=== PATIENT | female | born 1955 | race Caucasian/White ===

== ENCOUNTER 2017-04-26 17:25 | Inpatient (IN) | payer OTHER, MEDICAID ==
[~2017-04-26] VITALS: Ht 160 cm; Wt 77.1 kg
[2017-04-26 18:52] LABS: microscopic required? YES; urine erythrocyte 2+ (NEGATIVE)
[2017-04-26] MEDS ORDERED: BLOOD PRESSURE1 EA10 (22:44)
[2017-04-26 23:06] LABS: PLATELET COUNT 35 x10^3mcL (130-400); RED CELL DISTRIBUTION WIDTH 15.7 % (11.5-14.5)
[2017-04-26 23:11] LABS: CALCIUM 8.8 mg/dL (8.5-10.1); CARBON DIOXIDE 24.4 mmol/L (21-32); CHLORIDE SERUM 109 mmol/L (98-107); CREATININE SERUM 0.5 mg/dL (0.6-1.0); GFR1 > 60 mL/min; GLUCOSE SERUM 106 mg/dL (74-106); POTASSIUM SERUM 4.2 mmol/L (3.5-5.1); SODIUM SERUM 145 mmol/L (136-145)
[2017-04-26 23:15] LABS: ALBUMIN 3.4 g/dL (3.4-5.0); ALKALINE PHOSPHATASE 84 U/L (46-116); ALT/SGPT 18 U/L (14-59); AST/SGOT 25 U/L (15-37); BILIRUBIN TOTAL 2.31 mg/dL (0.20-1.00); TOTAL PROTEIN, SERUM 6.5 g/dL (6.4-8.2)
[2017-04-26] MEDS ORDERED: METFORMIN HCL1000 MG PO (23:23)
[2017-04-26] MEDS ORDERED: ATENOLOL25 MG PO (23:24)
[2017-04-26] MEDS ORDERED: JANUVIA100 M1 PO (23:24)
[2017-04-26] MEDS ORDERED: GLYBURIDE2.5 MG PO (23:24)
[2017-04-26] MEDS ORDERED: SPIRONOLACTONE50 MG PO (23:25)
[2017-04-26] MEDS ORDERED: LEVOTHYROXINE0.05 M2 PO (23:25)
[2017-04-26] MEDS ORDERED: NATURE'S BLEND F1 MG PO (23:25)
[2017-04-26] MEDS ORDERED: HYDROXYZINE HYD25 MG PO (23:26)
[2017-04-26] MEDS ORDERED: FERROUS SULFAT325 M2 PO (23:26)
[2017-04-26] MEDS ORDERED: PROMACTA75 MG PO (23:27)
[2017-04-26] MEDS ORDERED: PROBIOTIC 5 BI1 EACH (23:27)
[2017-04-26 23:32] LABS: BAND NEUTROPHIL 2 % (0-10); MONOCYTE 7 % (0-7); SEGMENTED NEUTROPHILS 77 % (37-75)
[2017-04-26 23:34] LABS: ovalocyte/elliptocyte 1+; rbc morphology (normal/abnorm) ABNORMAL (NORMAL); tear drop cell (dacryocyte) 1+
[2017-04-27] VITALS (7 sets, daily range): BP systolic 107–121; BP diastolic 54–70
[2017-04-27 01:14] LABS: T3 TOTAL 1.38 ng/mL
[2017-04-27 01:16] LABS: MAGNESIUM 2.2 mg/dL (1.8-2.4); PHOSPHOROUS 3.5 mg/dL (2.5-4.9)
[2017-04-27 01:17] LABS: CHOLESTEROL/HDL RATIO 2.2
[2017-04-27 01:21] LABS: FREE T4 1.37 ng/dL (0.76-1.46); T4(THYROXINE) 9.5 ug/dL (4.7-13.3)
[2017-04-27] MEDS ORDERED: LEVEMIR100 U/M1 SC (03:25)
[2017-04-27 07:11] LABS: RED CELL DISTRIBUTION WIDTH 15.5 % (11.5-14.5)
[2017-04-27 07:15] LABS: PLATELET COUNT 24 x10^3mcL (130-400)
[2017-04-27 07:16] LABS: CALCIUM 8.6 mg/dL (8.5-10.1); CARBON DIOXIDE 25.6 mmol/L (21-32); CHLORIDE SERUM 111 mmol/L (98-107); CREATININE SERUM 0.6 mg/dL (0.6-1.0); GFR1 > 60 mL/min; GLUCOSE SERUM 99 mg/dL (74-106); SODIUM SERUM 145 mmol/L (136-145)
[2017-04-27 08:01] LABS: BAND NEUTROPHIL 3 % (0-10); BASOPHIL 0 % (0-2); MONOCYTE 8 % (0-7); SEGMENTED NEUTROPHILS 71 % (37-75); ovalocyte/elliptocyte 1+; rbc morphology (normal/abnorm) ABNORMAL (NORMAL); tear drop cell (dacryocyte) 1+
[2017-04-28 06:17] VITALS: BP 106/49
[2017-04-28 09:46] VITALS: BP 145/53
[2017-04-28 14:05] VITALS: BP 104/48
[2017-04-28 17:21] VITALS: BP 103/49
[2017-04-28 21:22] VITALS: BP 111/56
[2017-04-29 05:41] VITALS: BP 102/53
[2017-04-29 07:13] LABS: CALCIUM 8.2 mg/dL (8.5-10.1); CARBON DIOXIDE 26.8 mmol/L (21-32); CHLORIDE SERUM 108 mmol/L (98-107); CREATININE SERUM 0.6 mg/dL (0.6-1.0); GFR1 > 60 mL/min; GLUCOSE SERUM 109 mg/dL (74-106); SODIUM SERUM 143 mmol/L (136-145)
[2017-04-29 07:37] LABS: PLATELET COUNT 46 x10^3mcL (130-400); RED CELL DISTRIBUTION WIDTH 15.3 % (11.5-14.5)
[2017-04-29 09:04] VITALS: BP 107/55
[2017-04-29 09:21] LABS: BAND NEUTROPHIL 1 % (0-10); MONOCYTE 13 % (0-7); SEGMENTED NEUTROPHILS 60 % (37-75)
[2017-04-29 09:22] LABS: rbc morphology (normal/abnorm) ABNORMAL (NORMAL)
[2017-04-29 09:23] LABS: ovalocyte/elliptocyte 1+
[2017-04-29] MEDS ORDERED: MECLIZINE HCL12.5 MG PO (14:39)
[2017-04-29] MEDS ORDERED: LAC PO (14:40)
[2017-04-29] MEDS ORDERED: LEVAQUIN750 MG PO (14:41)
[2017-04-29 15:19] VITALS: BP 107/55
== END 2017-04-29 16:55 | DRG 441 ==
LOC: ED 17:25 → DU 22:25
PROVIDERS: Family Medicine; Specialist; ADMIT Family Medicine
DX: K72.90 Hepatic failure, unspecified without coma (principal); N17.0 Acute kidney failure with tubular necrosis; I69.354 Hemiplegia and hemiparesis following cerebral infarction affecting left non-dominant side; N39.0 Urinary tract infection, site not specified; S16.1XXA Strain of muscle, fascia and tendon at neck level, initial encounter; E11.9 Type 2 diabetes mellitus without complications; K74.60 Unspecified cirrhosis of liver; B18.2 Chronic viral hepatitis C; D69.59 Other secondary thrombocytopenia; W18.39XA Other fall on same level, initial encounter; Y93.89 Activity, other specified; Y92.018 Other place in single-family (private) house as the place of occurrence of the external cause; I69.391 Dysphagia following cerebral infarction; R13.10 Dysphagia, unspecified; Z79.4 Long term (current) use of insulin; Z79.84 Long term (current) use of oral hypoglycemic drugs; E66.9 Obesity, unspecified; Z68.30 Body mass index [BMI] 30.0-30.9, adult
CPT/HCPCS: 82962; 83880; 84439; 97110-GP; 97116-GP; 97530-GP; J1815; J1885; J1956; J2405; J3010; J3411; J3475; J3490; J7030; Q0092; Q0162

== ENCOUNTER 2017-12-06 09:59 | Emergency (ER) | payer OTHER, MEDICAID ==
[~2017-12-06] VITALS: Ht 160 cm; Wt 73.5 kg
[~2017-12-06 09:59] MED LIST: ATENOLOL25 MG PO; BLOOD PRESSURE1 EA10; FERROUS SULFAT325 M2 PO; GLYBURIDE2.5 MG PO; HYDROXYZINE HYD25 MG PO; JANUVIA100 M1 PO; LAC PO; LEVAQUIN750 MG PO; LEVEMIR100 U/M1 SC; LEVOTHYROXINE0.05 M2 PO; MECLIZINE HCL12.5 MG PO; METFORMIN HCL1000 MG PO; NATURE'S BLEND F1 MG PO; PROBIOTIC 5 BI1 EACH; PROMACTA75 MG PO; SPIRONOLACTONE50 MG PO
[2017-12-06 10:08] VITALS: Ht 160 cm; Wt 73.5 kg
[2017-12-06 12:17] VITALS: BP 131/79
== END 2017-12-06 12:17 | disposition home or self-care (01) ==
LOC: ED 09:59
DX: S93.601A Unspecified sprain of right foot, initial encounter (principal); E11.9 Type 2 diabetes mellitus without complications; I10 Essential (primary) hypertension; E07.9 Disorder of thyroid, unspecified; B19.20 Unspecified viral hepatitis C without hepatic coma; Z86.73 Personal history of transient ischemic attack (TIA), and cerebral infarction without residual deficits; W18.30XA Fall on same level, unspecified, initial encounter; Y93.89 Activity, other specified; Y99.8 Other external cause status; Y92.89 Other specified places as the place of occurrence of the external cause
CPT/HCPCS: Q0092

== ENCOUNTER 2018-01-01 22:08 | Inpatient (IN) | payer OTHER, MEDICAID ==
[~2018-01-01] VITALS: Ht 167.6 cm; Wt 72.6 kg
[2018-01-01 22:15] VITALS: Ht 167.6 cm; Wt 72.6 kg
[2018-01-01] MEDS ORDERED: FUROSEMIDE20 MG PO (22:21)
[2018-01-01] MEDS ORDERED: ATENOLOL25 MG PO (22:21)
[2018-01-01] MEDS ORDERED: LEVOTHYROXINE0.05 M2 PO (22:21)
[2018-01-01] MEDS ORDERED: JANUVIA100 M1 PO (22:22)
[2018-01-01] MEDS ORDERED: MOT600 PO (22:22)
[2018-01-01] MEDS ORDERED: FERROUS SULFAT325 M2 PO (22:22)
[2018-01-01] MEDS ORDERED: PROMACTA75 MG PO (22:23)
[2018-01-01] MEDS ORDERED: OXYBUTYNIN CHLO15 M1 PO (22:23)
[2018-01-01 22:49] LABS: BASOPHIL % 0.6 % (0-2)
[2018-01-01 22:51] LABS: RED CELL DISTRIBUTION WIDTH 16.1 % (11.5-14.5)
[2018-01-01 22:52] LABS: CALCIUM 8.1 mg/dL (8.5-10.1); CARBON DIOXIDE 25.5 mmol/L (21-32); CHLORIDE SERUM 107 mmol/L (98-107); CREATININE SERUM 0.7 mg/dL (0.6-1.0); GFR1 > 60 mL/min; GLUCOSE SERUM 170 mg/dL (74-106); POTASSIUM SERUM 3.8 mmol/L (3.5-5.1); SODIUM SERUM 141 mmol/L (136-145)
[2018-01-01 22:57] LABS: ALKALINE PHOSPHATASE 93 U/L (46-116); ALT/SGPT 24 U/L (14-59); AST/SGOT 28 U/L (15-37); BILIRUBIN TOTAL 1.42 mg/dL (0.20-1.00)
[2018-01-01 23:03] LABS: ALBUMIN 3.1 g/dL (3.4-5.0); TOTAL PROTEIN, SERUM 5.7 g/dL (6.4-8.2)
[2018-01-01 23:06] LABS: PLATELET COUNT 25 x10^3mcL (130-400)
[2018-01-02] VITALS (7 sets, daily range): BP systolic 92–139; BP diastolic 53–76
[2018-01-02] MEDS ORDERED: GLYBURIDE2.5 MG PO (01:21)
[2018-01-02 02:56] LABS: T3 TOTAL 1.39 ng/mL
[2018-01-02 03:02] LABS: MAGNESIUM 1.7 mg/dL (1.8-2.4); PHOSPHOROUS 3.1 mg/dL (2.5-4.9)
[2018-01-02 03:09] LABS: FREE T4 1.28 ng/dL (0.76-1.46); T4(THYROXINE) 9.2 ug/dL (4.7-13.3)
[2018-01-02 03:29] LABS: CHOLESTEROL/HDL RATIO 1.9
[2018-01-02 03:55] LABS: BASOPHIL % 0.2 % (0-2)
[2018-01-02 03:58] LABS: PLATELET COUNT 13 x10^3mcL (130-400); RED CELL DISTRIBUTION WIDTH 15.9 % (11.5-14.5)
[2018-01-02 04:19] LABS: CALCIUM 6.8 mg/dL (8.5-10.1); CARBON DIOXIDE 22.6 mmol/L (21-32); CHLORIDE SERUM 113 mmol/L (98-107); CREATININE SERUM 0.4 mg/dL (0.6-1.0); GFR1 > 60 mL/min; GLUCOSE SERUM 123 mg/dL (74-106); MAGNESIUM 1.4 mg/dL (1.8-2.4); PHOSPHOROUS 2.5 mg/dL (2.5-4.9); SODIUM SERUM 144 mmol/L (136-145)
[2018-01-02 04:21] LABS: POTASSIUM SERUM 2.9 mmol/L (3.5-5.1)
[2018-01-02 12:06] LABS: CALCIUM 8.5 mg/dL (8.5-10.1); CARBON DIOXIDE 27.6 mmol/L (21-32); CHLORIDE SERUM 108 mmol/L (98-107); CREATININE SERUM 0.6 mg/dL (0.6-1.0); GFR1 > 60 mL/min; GLUCOSE SERUM 128 mg/dL (74-106); MAGNESIUM 2.3 mg/dL (1.8-2.4); PHOSPHOROUS 3.5 mg/dL (2.5-4.9); POTASSIUM SERUM 4.1 mmol/L (3.5-5.1); SODIUM SERUM 143 mmol/L (136-145)
[2018-01-02 12:50] LABS: RED CELL DISTRIBUTION WIDTH 16.2 % (11.5-14.5)
[2018-01-02 14:07] LABS: ATYPICAL LYMPH 4 %; BAND NEUTROPHIL 0 % (0-10); MONOCYTE 3 % (0-7); SEGMENTED NEUTROPHILS 72 % (37-75)
[2018-01-02 15:01] LABS: PLATELET MORPHOLOGY PLATELETS DECREASED
[2018-01-02 15:02] LABS: rbc morphology (normal/abnorm) ABNORMAL (NORMAL)
[2018-01-02 15:03] LABS: PLATELET COUNT 29 x10^3mcL (130-400)
[2018-01-03 06:22] VITALS: BP 117/56
[2018-01-03 06:41] LABS: CALCIUM 7.9 mg/dL (8.5-10.1); CARBON DIOXIDE 28.7 mmol/L (21-32); CHLORIDE SERUM 109 mmol/L (98-107); CREATININE SERUM 0.5 mg/dL (0.6-1.0); GFR1 > 60 mL/min; GLUCOSE SERUM 95 mg/dL (74-106); POTASSIUM SERUM 4.9 mmol/L (3.5-5.1); SODIUM SERUM 141 mmol/L (136-145)
[2018-01-03 07:29] LABS: PLATELET COUNT 16 x10^3mcL (130-400)
[2018-01-03 09:40] VITALS: BP 102/55
[2018-01-03 11:05] LABS: MONOCYTE 11 % (0-7); SEGMENTED NEUTROPHILS 57 % (37-75); rbc morphology (normal/abnorm) NORMAL (NORMAL)
[2018-01-03 13:35] VITALS: BP 121/64
[2018-01-03 16:48] VITALS: BP 121/61
[2018-01-03 20:58] VITALS: BP 109/60
[2018-01-04 04:32] VITALS: BP 119/61
[2018-01-04 06:37] LABS: CALCIUM 8.6 mg/dL (8.5-10.1); CARBON DIOXIDE 30.7 mmol/L (21-32); CHLORIDE SERUM 106 mmol/L (98-107); CREATININE SERUM 0.5 mg/dL (0.6-1.0); GFR1 > 60 mL/min; GLUCOSE SERUM 82 mg/dL (74-106); POTASSIUM SERUM 4.5 mmol/L (3.5-5.1); SODIUM SERUM 140 mmol/L (136-145)
[2018-01-04 08:11] LABS: RED CELL DISTRIBUTION WIDTH 16.3 % (11.5-14.5)
[2018-01-04 08:13] LABS: PLATELET COUNT 14 x10^3mcL (130-400)
[2018-01-04 09:10] VITALS: BP 119/59
[2018-01-04 11:01] LABS: BAND NEUTROPHIL 0 % (0-10); BASOPHIL 0 % (0-2); MONOCYTE 10 % (0-7); SEGMENTED NEUTROPHILS 60 % (37-75)
[2018-01-04 11:03] LABS: PLATELET MORPHOLOGY PLATELETS DECREASED; rbc morphology (normal/abnorm) ABNORMAL (NORMAL)
[2018-01-04 13:08] VITALS: BP 122/54
[2018-01-04 17:41] VITALS: BP 105/71
[2018-01-04 20:43] VITALS: BP 128/63
[2018-01-05 03:16] VITALS: BP 130/72
[2018-01-05 05:08] VITALS: BP 120/58
[2018-01-05 08:10] LABS: RED CELL DISTRIBUTION WIDTH 15.7 % (11.5-14.5)
[2018-01-05 09:03] VITALS: BP 103/60
[2018-01-05 11:46] LABS: ATYPICAL LYMPH 4 %; BAND NEUTROPHIL 4 % (0-10); SEGMENTED NEUTROPHILS 60 % (37-75)
[2018-01-05 11:47] LABS: BASOPHIL 0 % (0-2); MONOCYTE 12 % (0-7); rbc morphology (normal/abnorm) ABNORMAL (NORMAL)
[2018-01-05 12:08] LABS: PLATELET COUNT 27 x10^3mcL (130-400)
[2018-01-05 12:56] VITALS: BP 116/66
[2018-01-05 16:51] VITALS: BP 133/69
[2018-01-05] MEDS ORDERED: ZOF4 PO (17:18)
[2018-01-05] MEDS ORDERED: CONSTULOSE10 GM/151 PO (17:22)
== END 2018-01-05 19:25 | disposition home health service (06) | DRG 291 ==
LOC: ED 22:08 → DU 01-02 00:16 → EDBEDREQ 01-02 00:16 → DU 01-02 01:08
PROVIDERS: Emergency Medicine; Family Medicine
DX: I11.0 Hypertensive heart disease with heart failure (principal); N17.0 Acute kidney failure with tubular necrosis; D61.818 Other pancytopenia; I69.351 Hemiplegia and hemiparesis following cerebral infarction affecting right dominant side; G90.8 Other disorders of autonomic nervous system; I50.43 Acute on chronic combined systolic (congestive) and diastolic (congestive) heart failure; S09.90XA Unspecified injury of head, initial encounter; W18.39XA Other fall on same level, initial encounter; E11.9 Type 2 diabetes mellitus without complications; B19.20 Unspecified viral hepatitis C without hepatic coma; S13.4XXA Sprain of ligaments of cervical spine, initial encounter; Z66 Do not resuscitate; K74.60 Unspecified cirrhosis of liver; K72.90 Hepatic failure, unspecified without coma; E78.5 Hyperlipidemia, unspecified; I25.10 Atherosclerotic heart disease of native coronary artery without angina pectoris; D64.9 Anemia, unspecified; Z88.0 Allergy status to penicillin; Z88.5 Allergy status to narcotic agent; Y93.89 Activity, other specified; Y92.89 Other specified places as the place of occurrence of the external cause; Y99.8 Other external cause status; Z79.899 Other long term (current) drug therapy; Z79.82 Long term (current) use of aspirin; Z83.3 Family history of diabetes mellitus; Z82.49 Family history of ischemic heart disease and other diseases of the circulatory system; Z87.891 Personal history of nicotine dependence
CPT/HCPCS: 82962; 83880; 84439; 85060; 90715; 92526-GN; 92610; 97110-GP; 97116-GP; 97530-GP; J1940; J2405; J2785; J3010; J3475; J3480; J3490; J7030; J7040; Q0092